=== PATIENT | female | born 1945 | race Caucasian/White ===

== ENCOUNTER 2016-12-07 18:47 | Observation (INO) | payer MEDICARE, OTHER ==
[~2016-12-07] VITALS: Ht 162.6 cm; Wt 113.4 kg
[2016-12-07 20:11] LABS: HEMOGLOBIN 14.6 gm/dl (12.3-15.3); RED BLOOD COUNT 5.06 M/UL (4.00-5.10); WHITE BLOOD COUNT 10.7 K/UL (4.5-11.0)
[2016-12-07 20:40] LABS: BUN/CREATININE RATIO 13 (0-10)
[2016-12-08] MEDS ORDERED: ADVAIR 250-501 EACH INH (01:54)
[2016-12-08] MEDS ORDERED: XYZAL5 MG PO (01:54)
[2016-12-08] MEDS ORDERED: FUROSEMIDE40 MG PO ×2 (01:55→01:56)
[2016-12-08] MEDS ORDERED: TRADJENTA5 MG PO (01:56)
[2016-12-08] MEDS ORDERED: ANASTROZOLE1 MG PO (01:56)
[2016-12-08] MEDS ORDERED: LISINOPRIL20 MG PO (01:57)
[2016-12-08] MEDS ORDERED: LIPITOR TAB 2020 MG PO (01:57)
[2016-12-08] MEDS ORDERED: FLUOXETINE HCL40 MG PO (01:57)
[2016-12-08] MEDS ORDERED: GLUCOPHAGE500 MG PO (01:58)
[2016-12-08] MEDS ORDERED: PANTOPRAZOLE SO40 MG PO (01:58)
[2016-12-08] MEDS ORDERED: POTASSIUM CHLO10 MEQ PO (01:59)
[2016-12-08 02:50] LABS: HEMOGLOBIN 13.6 gm/dl (12.3-15.3); RED BLOOD COUNT 4.64 M/UL (4.00-5.10); WHITE BLOOD COUNT 8.8 K/UL (4.5-11.0)
[2016-12-08 03:15] LABS: BUN/CREATININE RATIO 15 (0-10)
== END 2016-12-08 18:30 | disposition home or self-care (01) ==
LOC: ER1 18:47 → ZEROF 22:48 → M/S 22:48
PROVIDERS: Family Medicine; ADMIT Hospitalist
DX: R07.9 Chest pain, unspecified (principal); I25.10 Atherosclerotic heart disease of native coronary artery without angina pectoris; I11.0 Hypertensive heart disease with heart failure; I50.9 Heart failure, unspecified; E11.9 Type 2 diabetes mellitus without complications; E78.5 Hyperlipidemia, unspecified; E66.9 Obesity, unspecified; Z68.41 Body mass index [BMI] 40.0-44.9, adult; Z85.3 Personal history of malignant neoplasm of breast; Z87.19 Personal history of other diseases of the digestive system; Z86.718 Personal history of other venous thrombosis and embolism; Z88.8 Allergy status to other drugs, medicaments and biological substances; Z88.0 Allergy status to penicillin; Z79.84 Long term (current) use of oral hypoglycemic drugs; Z79.899 Other long term (current) drug therapy
CPT/HCPCS: ECHO; 36415; 71010; 80053; 80061; 82550; 82553; 82962; 83036; 83874; 83880; 84443; 84484; 85025; 85027; 85379; 93005; 93306; 96372; 96374; 99285; C9113; G0378; J1650

== ENCOUNTER → 2020-06-06 | Outpatient (CLI) | payer MEDICARE, OTHER ==
[~2020-06-06] MED LIST: ADVAIR 250-501 EACH INH; ALBUTEROL2.5 MG/3 M INH; ANASTROZOLE1 MG PO; ARIMIDEX1 MG PO; ASPIRIN EC81 MG PO; ATORVASTATIN CA40 MG PO; CINNAMON PO; FIBER CHOICE PO; FISH OIL 1,0001 EACH PO; FLUOXETINE HCL40 MG PO; FUROSEMIDE20 MG PO; FUROSEMIDE40 MG PO; GLUCOPHAGE500 MG PO; K-DUR TAB 10 M10 MEQ PO; LIPITOR TAB 2020 MG PO; LISINOPRIL20 MG PO; MECLIZINE HCL12.5 MG PO; METFORMIN HCL500 MG PO; NORCO 5-325 TA1 EACH PO; PANTOPRAZOLE SO40 MG PO; POTASSIUM CHLO10 MEQ PO; PROAIR HFA8.5 GM INH; TRADJENTA5 MG PO; VIT D PO; XYZAL5 MG PO; ZYRTEC10 MG PO; [UNRECOGNIZED DRUG - OTHER] PO
== END ==
LOC: EXRD 11:27
DX: R07.81 Pleurodynia (principal); R91.8 Other nonspecific abnormal finding of lung field
CPT/HCPCS: 71101

== ENCOUNTER → 2020-06-14 | Outpatient (CLI) | payer MEDICARE, OTHER | LOC: MAMO 05-10 10:00 | DX: Z12.31 Encounter for screening mammogram for malignant neoplasm of breast (principal) | CPT/HCPCS: 77063; 77067 ==

== ENCOUNTER 2020-10-28 00:27 | Emergency (ER) | payer MEDICARE, OTHER ==
[2020-10-28] MEDS ORDERED: CLINDAMYCIN HC150 MG PO (04:32)
== END 2020-10-28 04:41 | disposition home or self-care (01) ==
LOC: ER1 00:27
DX: L03.116 Cellulitis of left lower limb (principal); E78.5 Hyperlipidemia, unspecified; E11.9 Type 2 diabetes mellitus without complications; I11.0 Hypertensive heart disease with heart failure; I50.9 Heart failure, unspecified; Z85.3 Personal history of malignant neoplasm of breast; Z90.49 Acquired absence of other specified parts of digestive tract; Z90.89 Acquired absence of other organs; Z90.710 Acquired absence of both cervix and uterus; Z88.0 Allergy status to penicillin; Z88.2 Allergy status to sulfonamides; Z88.8 Allergy status to other drugs, medicaments and biological substances
CPT/HCPCS: 99283

== ENCOUNTER → 2021-05-27 | Outpatient (CLI) | payer MEDICARE, OTHER ==
[~2021-05-27] MED LIST changes: +CLINDAMYCIN HC150 MG PO
== END ==
LOC: EXRD 10:30
DX: M81.0 Age-related osteoporosis without current pathological fracture (principal); C50.111 Malignant neoplasm of central portion of right female breast; E86.1 Hypovolemia; M85.852 Other specified disorders of bone density and structure, left thigh
CPT/HCPCS: 77080

== ENCOUNTER → 2021-06-18 | Outpatient (CLI) | payer MEDICARE, OTHER | LOC: MAMO 10:00 | DX: Z12.31 Encounter for screening mammogram for malignant neoplasm of breast (principal); C50.111 Malignant neoplasm of central portion of right female breast; T82.898A Other specified complication of vascular prosthetic devices, implants and grafts, initial encounter; E86.1 Hypovolemia; Z98.890 Other specified postprocedural states | CPT/HCPCS: 77063; 77067 ==

== ENCOUNTER → 2021-06-19 | Outpatient (CLI) | payer MEDICARE, OTHER | LOC: HEART 5 11:47 | DX: J45.40 Moderate persistent asthma, uncomplicated (principal) | CPT/HCPCS: 94060; 94729 ==

== ENCOUNTER → 2021-06-19 | Outpatient (CLI) | payer MEDICARE, OTHER | LOC: RT 11:46 | DX: J45.40 Moderate persistent asthma, uncomplicated (principal) | CPT/HCPCS: 36600; 82803 ==

== ENCOUNTER 2021-07-23 23:19 | Inpatient (IN) | payer MEDICARE, OTHER ==
[~2021-07-23] VITALS: Ht 162.6 cm; Wt 111.1 kg
[~2021-07-23 23:19] MED LIST changes: +ASPIRIN EC325 MG PO; -ASPIRIN EC81 MG PO; -K-DUR TAB 10 M10 MEQ PO; +K-TAB ER10 MEQ PO; +LISINOPRIL30 MG PO; +PRENATAL VITAM1 EAC3 PO; -[UNRECOGNIZED DRUG - OTHER] PO
[2021-07-23 23:34] LABS: HEMOGLOBIN 13.7 gm/dl (12.3-15.3); RED BLOOD COUNT 4.66 M/UL (4.00-5.10); WHITE BLOOD COUNT 15.9 K/UL (4.5-11.0)
[2021-07-23 23:54] LABS: BUN/CREATININE RATIO 21 (0-10)
[2021-07-24] MEDS ORDERED: MACROBID 100 M100 MG PO (10:21)
[2021-07-24] MEDS ORDERED: MAG-OX 400 TAB400 MG PO (10:22)
[2021-07-24] MEDS ORDERED: LEVOCETIRIZINE D5 MG PO (10:23)
[2021-07-24] MEDS ORDERED: ISOSORBIDE MONO30 MG PO (10:23)
[2021-07-24] MEDS ORDERED: VITAMIN C500 M4 PO (10:26)
--- NOTE | 2021-07-24 21:42 | NUR ---
Late Entry 07/24/2021 at 2049: Spoke with Jnae in pharmacy related to Acetaminophen allergy listed. Patient stated that she takes Tylenol at home with no adverse side effects.
[2021-07-25 03:07] LABS: HEMOGLOBIN 13.3 gm/dl (12.3-15.3); RED BLOOD COUNT 4.57 M/UL (4.00-5.10)
[2021-07-25 03:12] LABS: WHITE BLOOD COUNT 9.9 K/UL (4.5-11.0)
[2021-07-25 04:30] LABS: BUN/CREATININE RATIO 16 (0-10)
[2021-07-26 03:56] LABS: HEMOGLOBIN 11.6 gm/dl (12.3-15.3)
[2021-07-26 04:10] LABS: RED BLOOD COUNT 3.99 M/UL (4.00-5.10); WHITE BLOOD COUNT 5.7 K/UL (4.5-11.0)
[2021-07-26 04:20] LABS: BUN/CREATININE RATIO 16 (0-10)
[2021-07-27 05:19] LABS: BUN/CREATININE RATIO 12 (0-10)
--- NOTE | 2021-07-28 15:35 | NUR ---
1535- PT REQUESTED NURSE TO CALL DR. STROUD ABOUT CODE STATUS. PT STATES SHE WANTS TO BE FULL CODE. NOTIFIED. DR. SMITH CALLED AND SPOLE TO PT OVER THE FAMILY, ORDERED TO CHANGE CODE STATUS TO FULL CODE.
[2021-07-29 10:08] LABS: HEMOGLOBIN 12.9 gm/dl (12.3-15.3); RED BLOOD COUNT 4.45 M/UL (4.00-5.10); WHITE BLOOD COUNT 8.1 K/UL (4.5-11.0)
[2021-07-30 03:24] LABS: HEMOGLOBIN 12.9 gm/dl (12.3-15.3); RED BLOOD COUNT 4.45 M/UL (4.00-5.10)
[2021-07-30 04:07] LABS: BUN/CREATININE RATIO 15 (0-10)
[2021-08-01] MEDS ORDERED: ASPIRIN EC81 MG PO (11:26)
[2021-08-01] MEDS ORDERED: IPRAT-ALBUT 0.5-3 ML NEB (11:26)
[2021-08-01] MEDS ORDERED: ROBITUSSIN DM UD5 ML PO (11:26)
[2021-08-01] MEDS ORDERED: NEBULIZER UNIT NEB (11:29)
== END 2021-08-01 17:43 | disposition home or self-care (01) | DRG 871 ==
LOC: ER1 23:19 → CDU 07-24 00:37 → M/S 07-24 00:37
PROVIDERS: Internal Medicine; Internal Medicine Interventional Cardiology; Nurse Practitioner; Physician Assistant; ADMIT Internal Medicine
PROC: 3E03329 Introduction of Other Anti-infective into Peripheral Vein, Percutaneous Approach (ICD-10-PCS; 2021-07-24)
PROC: 4A023N7 Measurement of Cardiac Sampling and Pressure, Left Heart, Percutaneous Approach (ICD-10-PCS; principal; 2021-07-30)
PROC: B2111ZZ Fluoroscopy of Multiple Coronary Arteries using Low Osmolar Contrast (ICD-10-PCS; 2021-07-30)
DX: A41.51 Sepsis due to Escherichia coli [E. coli] (principal); J96.21 Acute and chronic respiratory failure with hypoxia; J18.9 Pneumonia, unspecified organism; E87.2 Acidosis; N30.00 Acute cystitis without hematuria; Z68.41 Body mass index [BMI] 40.0-44.9, adult; R65.20 Severe sepsis without septic shock; Z20.822 Contact with and (suspected) exposure to COVID-19; E66.01 Morbid (severe) obesity due to excess calories; B96.20 Unspecified Escherichia coli [E. coli] as the cause of diseases classified elsewhere; E11.9 Type 2 diabetes mellitus without complications; I51.7 Cardiomegaly; I10 Essential (primary) hypertension; E78.5 Hyperlipidemia, unspecified; I25.9 Chronic ischemic heart disease, unspecified; Z85.3 Personal history of malignant neoplasm of breast; Z82.49 Family history of ischemic heart disease and other diseases of the circulatory system; Z88.0 Allergy status to penicillin; Z66 Do not resuscitate; J44.9 Chronic obstructive pulmonary disease, unspecified; Z99.81 Dependence on supplemental oxygen
CPT/HCPCS: 0240U; 36415; 36600; 71045; 80048; 80053; 80202; 81001; 82533; 82550; 82553; 82803; 82962; 83036; 83605; 83735; 83880; 84439; 84443; 84484; 85025; 85027; 85652; 87040; 87077; 87086; 87186; 93005; 93571; 94640; 94760; 96374; 96375; 96376; 97161; 97165; 99152; 99153; 99285; C1769; C1887; J0153; J0461; J1644; J1650; J1956; J2250; J3010; J3370; J7040; J7070; Q9967

== ENCOUNTER 2021-09-03 14:11 | Emergency (ER) | payer MEDICARE, OTHER ==
[~2021-09-03 14:11] MED LIST changes: +ASPIRIN EC81 MG PO; +IPRAT-ALBUT 0.5-3 ML NEB; +ISOSORBIDE MONO30 MG PO; +LEVOCETIRIZINE D5 MG PO; +MACROBID 100 M100 MG PO; +MAG-OX 400 TAB400 MG PO; +NEBULIZER UNIT NEB; +ROBITUSSIN DM UD5 ML PO; +VITAMIN C500 M4 PO
[2021-09-03] MEDS ORDERED: MIRALAX 119 GR119 GM GT (19:10)
[2021-09-03] MEDS ORDERED: COMMODE (19:10)
[2021-09-03] MEDS ORDERED: Walker (19:10)
[2021-09-03] MEDS ORDERED: HYDROCODON-ACE1 EAC2 PO (19:10)
== END 2021-09-03 23:30 | disposition home or self-care (01) ==
LOC: ER1 14:11
DX: M54.6 Pain in thoracic spine (principal); J45.909 Unspecified asthma, uncomplicated; E78.5 Hyperlipidemia, unspecified; E11.9 Type 2 diabetes mellitus without complications; Z85.3 Personal history of malignant neoplasm of breast; Z90.710 Acquired absence of both cervix and uterus
CPT/HCPCS: 72128; 72131; 96372; 99283; J1885; J2270

== ENCOUNTER 2021-09-04 16:59 | Emergency (ER) | payer MEDICARE, OTHER ==
[~2021-09-04 16:59] MED LIST changes: +COMMODE; +HYDROCODON-ACE1 EAC2 PO; +MIRALAX 119 GR119 GM GT; +Walker
[2021-09-04 18:55] LABS: HEMOGLOBIN 17.9 gm/dl (12.3-15.3); RED BLOOD COUNT 6.05 M/UL (4.00-5.10)
[2021-09-04 19:04] LABS: WHITE BLOOD COUNT 34.9 K/UL (4.5-11.0)
== END 2021-09-05 00:10 | disposition short-term general hospital (02) ==
LOC: ER1 16:59
PROVIDERS: Emergency Medicine
DX: A41.9 Sepsis, unspecified organism (principal); R65.21 Severe sepsis with septic shock; S22.089A Unspecified fracture of T11-T12 vertebra, initial encounter for closed fracture; J96.21 Acute and chronic respiratory failure with hypoxia; N39.0 Urinary tract infection, site not specified; N17.9 Acute kidney failure, unspecified; J44.9 Chronic obstructive pulmonary disease, unspecified; E66.01 Morbid (severe) obesity due to excess calories; Z20.822 Contact with and (suspected) exposure to COVID-19; X50.9XXA Other and unspecified overexertion or strenuous movements or postures, initial encounter
CPT/HCPCS: 0240U; 36600; 51701; 70450; 71045; 71250; 72125; 80053; 80307; 81001; 82550; 82553; 82803; 83605; 83735; 84100; 84484; 85025; 87040; 87086; 93005; 96365; 96366; 99285; J1885; J2185; J2310; J3370; J7070

== ENCOUNTER → 2021-10-19 | Outpatient (CLI) | payer MEDICARE, OTHER | LOC: MRI 09:25 | DX: S22.080A Wedge compression fracture of T11-T12 vertebra, initial encounter for closed fracture (principal); M48.04 Spinal stenosis, thoracic region; G95.9 Disease of spinal cord, unspecified | CPT/HCPCS: 72146 ==

== ENCOUNTER 2021-10-23 14:14 | Emergency (ER) | payer MEDICARE, OTHER ==
[2021-10-23 15:08] LABS: HEMOGLOBIN 11.8 gm/dl (12.3-15.3); RED BLOOD COUNT 4.3 M/UL (4.00-5.10); WHITE BLOOD COUNT 8.6 K/UL (4.5-11.0)
[2021-10-23 15:34] LABS: BUN/CREATININE RATIO 13 (0-10)
[2021-10-23] MEDS ORDERED: METRONIDAZOLE500 MG PO (19:53)
[2021-10-23] MEDS ORDERED: LEVOFLOXACIN750 MG PO (19:53)
[2021-10-23] MEDS ORDERED: MAGNESIUM OXID400 M1 PO (19:56)
== END 2021-10-23 20:35 | disposition home or self-care (01) ==
LOC: ER1 14:14
PROVIDERS: Family Medicine
DX: R10.30 Lower abdominal pain, unspecified (principal); E83.42 Hypomagnesemia; E78.5 Hyperlipidemia, unspecified; I10 Essential (primary) hypertension; Z88.0 Allergy status to penicillin
CPT/HCPCS: 80053; 81001; 82272; 82550; 82553; 83690; 83735; 84484; 85025; 86850; 86900; 86901; 87086; 93005; 99284; J2704; J2930; Q9967

== ENCOUNTER 2021-12-14 19:33 | Inpatient (IN) | payer MEDICARE, OTHER ==
[~2021-12-14] VITALS: Ht 162.6 cm; Wt 113.9 kg
[~2021-12-14 19:33] MED LIST changes: +LEVOFLOXACIN750 MG PO; +MAGNESIUM OXID400 M1 PO; +METRONIDAZOLE500 MG PO; +PROTONIX20 MG PO
[2021-12-14 20:28] LABS: HEMOGLOBIN 13.3 gm/dl (12.3-15.3); RED BLOOD COUNT 4.8 M/UL (4.00-5.10); WHITE BLOOD COUNT 19.5 K/UL (4.5-11.0)
[2021-12-15 07:32] LABS: HEMOGLOBIN 11.4 gm/dl (12.3-15.3); WHITE BLOOD COUNT 15.6 K/UL (4.5-11.0)
[2021-12-15 07:34] LABS: RED BLOOD COUNT 4.18 M/UL (4.00-5.10)
--- NOTE | 2021-12-15 09:09 | NUR ---
0810- NOTIFED MD OF CRITICAL LACTIC 21.2. NO NEW ORDERS
--- NOTE | 2021-12-15 10:52 | NUR ---
1052- NOTIFED DR GOLDSMITH OF RADIOLOGY STATING PT HAS A RIGHT DVT IN THE FEMORAL POPLITEAL SYSTEM. NO NEW ORDERS
[2021-12-15] MEDS ORDERED: METOPROLOL TART25 MG PO (12:38)
[2021-12-15] MEDS ORDERED: LEVOCETIRIZINE D5 MG PO (12:39)
[2021-12-15] MEDS ORDERED: MONTELUKAST SOD10 MG PO (12:39)
[2021-12-15] MEDS ORDERED: ZOFRAN ODT 4 MG4 MG PO (12:39)
[2021-12-15] MEDS ORDERED: LISINOPRIL30 MG PO (12:40)
[2021-12-15] MEDS ORDERED: VITAMIN D3125 MCG PO (12:41)
[2021-12-15] MEDS ORDERED: MAGNESIUM400 M2 PO (12:43)
[2021-12-15 19:33] LABS: BUN/CREATININE RATIO 25 (0-10)
[2021-12-16 01:40] LABS: RED BLOOD COUNT 4.02 M/UL (4.00-5.10); WHITE BLOOD COUNT 15.3 K/UL (4.5-11.0)
[2021-12-16 01:58] LABS: BUN/CREATININE RATIO 29 (0-10)
--- NOTE | 2021-12-16 03:41 | NUR ---
CONTACTED DR. DANIELE LAMBERT DUE TO CRITICAL LAB OF LACTIC ACID 23.2, SHE ORDERED A REPEAT BNP AND LACTIC ACID AT 0600 AND A [address] NS [address]. [address] LAMBERT WAS MADE AWARE OF CHF IN PATIENTS MD JEFFERS. WILL MONITOR PATIENT. NO DISTRESS NOTED AT THIS TIME.
[2021-12-17 03:24] LABS: HEMOGLOBIN 10.3 gm/dl (12.3-15.3); RED BLOOD COUNT 3.81 M/UL (4.00-5.10)
[2021-12-17 03:28] LABS: WHITE BLOOD COUNT 8.7 K/UL (4.5-11.0)
--- NOTE | 2021-12-17 11:19 | NUR ---
PTS CHART REVIEWED BY BELLE MCCLELLAN RN
[2021-12-17 15:48] LABS: BUN/CREATININE RATIO 49 (0-10)
[2021-12-18 07:40] LABS: HEMOGLOBIN 10.7 gm/dl (12.3-15.3); RED BLOOD COUNT 3.98 M/UL (4.00-5.10)
[2021-12-18 08:08] LABS: BUN/CREATININE RATIO 42 (0-10)
[2021-12-19 03:00] LABS: HEMOGLOBIN 10.4 gm/dl (12.3-15.3); RED BLOOD COUNT 3.82 M/UL (4.00-5.10)
[2021-12-19 03:01] LABS: WHITE BLOOD COUNT 10.3 K/UL (4.5-11.0)
[2021-12-19 04:02] LABS: BUN/CREATININE RATIO 46 (0-10)
[2021-12-20 21:18] LABS: HEMOGLOBIN 10.4 gm/dl (12.3-15.3); RED BLOOD COUNT 3.81 M/UL (4.00-5.10)
[2021-12-21 06:21] LABS: HEMOGLOBIN 11.4 gm/dl (12.3-15.3); RED BLOOD COUNT 4.13 M/UL (4.00-5.10); WHITE BLOOD COUNT 12.3 K/UL (4.5-11.0)
[2021-12-21 08:40] LABS: BUN/CREATININE RATIO 38 (0-10)
[2021-12-22 06:39] LABS: HEMOGLOBIN 11.7 gm/dl (12.3-15.3); RED BLOOD COUNT 4.32 M/UL (4.00-5.10)
[2021-12-22 07:07] LABS: WHITE BLOOD COUNT 8.9 K/UL (4.5-11.0)
[2021-12-22 07:56] LABS: BUN/CREATININE RATIO 28 (0-10)
[2021-12-23 05:18] LABS: HEMOGLOBIN 10.9 gm/dl (12.3-15.3); RED BLOOD COUNT 3.96 M/UL (4.00-5.10)
[2021-12-23 05:35] LABS: BUN/CREATININE RATIO 26 (0-10)
[2021-12-24 03:36] LABS: HEMOGLOBIN 10.7 gm/dl (12.3-15.3); RED BLOOD COUNT 3.93 M/UL (4.00-5.10); WHITE BLOOD COUNT 8.8 K/UL (4.5-11.0)
[2021-12-24 07:46] LABS: BUN/CREATININE RATIO 22 (0-10)
[2021-12-24] MEDS ORDERED: ELIQUIS (11:19)
[2021-12-24] MEDS ORDERED: INVANZ 1 GM (11:19)
[2021-12-24] MEDS ORDERED: HYDROCODON-ACE1 EAC2 PO (11:28)
--- NOTE | 2021-12-24 14:19 | NUR ---
REPORT CALLED TO RICARDO AT [facility]
[2021-12-25 03:44] LABS: HEMOGLOBIN 11.1 gm/dl (12.3-15.3); RED BLOOD COUNT 4.09 M/UL (4.00-5.10); WHITE BLOOD COUNT 10.1 K/UL (4.5-11.0)
[2021-12-25 03:59] LABS: BUN/CREATININE RATIO 20 (0-10)
[2021-12-25] MEDS ORDERED: REGLAN5 MG PO (12:59)
== END 2021-12-25 19:55 | disposition home health service (06) | DRG 871 ==
LOC: ER1 19:33 → M/S 12-15 02:38 → CDU 12-15 02:38 → M/S 12-15 05:33
PROVIDERS: Emergency Medicine; Internal Medicine; Internal Medicine Nephrology; ADMIT Family Medicine
PROC: 3E03329 Introduction of Other Anti-infective into Peripheral Vein, Percutaneous Approach (ICD-10-PCS; principal; 2021-12-16)
PROC: B24BZZZ Ultrasonography of Heart with Aorta (ICD-10-PCS; 2021-12-16)
PROC: 4A03XR1 Measurement of Arterial Saturation, Peripheral, External Approach (ICD-10-PCS; 2021-12-16)
PROC: 02HV33Z Insertion of Infusion Device into Superior Vena Cava, Percutaneous Approach (ICD-10-PCS; 2021-12-18)
DX: A41.51 Sepsis due to Escherichia coli [E. coli] (principal); G93.41 Metabolic encephalopathy; L89.154 Pressure ulcer of sacral region, stage 4; J18.9 Pneumonia, unspecified organism; N30.00 Acute cystitis without hematuria; E87.1 Hypo-osmolality and hyponatremia; N17.9 Acute kidney failure, unspecified; J44.0 Chronic obstructive pulmonary disease with (acute) lower respiratory infection; I13.0 Hypertensive heart and chronic kidney disease with heart failure and stage 1 through stage 4 chronic kidney disease, or unspecified chronic kidney disease; I82.412 Acute embolism and thrombosis of left femoral vein; I82.432 Acute embolism and thrombosis of left popliteal vein; J96.11 Chronic respiratory failure with hypoxia; Z68.42 Body mass index [BMI] 45.0-49.9, adult; E78.5 Hyperlipidemia, unspecified; E66.01 Morbid (severe) obesity due to excess calories; K21.9 Gastro-esophageal reflux disease without esophagitis; K57.90 Diverticulosis of intestine, part unspecified, without perforation or abscess without bleeding; R53.83 Other fatigue; K21.00 Gastro-esophageal reflux disease with esophagitis, without bleeding; I25.10 Atherosclerotic heart disease of native coronary artery without angina pectoris; I50.9 Heart failure, unspecified; E86.9 Volume depletion, unspecified; R62.7 Adult failure to thrive; G47.33 Obstructive sleep apnea (adult) (pediatric); R65.20 Severe sepsis without septic shock; M54.50 Low back pain, unspecified; K59.00 Constipation, unspecified; S22.089D Unspecified fracture of T11-T12 vertebra, subsequent encounter for fracture with routine healing; G89.29 Other chronic pain; E11.22 Type 2 diabetes mellitus with diabetic chronic kidney disease; N18.30 Chronic kidney disease, stage 3 unspecified; L89.892 Pressure ulcer of other site, stage 2; Z74.01 Bed confinement status; Z90.49 Acquired absence of other specified parts of digestive tract; Z85.3 Personal history of malignant neoplasm of breast; Z80.1 Family history of malignant neoplasm of trachea, bronchus and lung; Z88.0 Allergy status to penicillin; Z88.8 Allergy status to other drugs, medicaments and biological substances; Z90.710 Acquired absence of both cervix and uterus; Z98.890 Other specified postprocedural states; Z88.2 Allergy status to sulfonamides; Z79.01 Long term (current) use of anticoagulants; Z92.21 Personal history of antineoplastic chemotherapy; Z90.11 Acquired absence of right breast and nipple; Z79.899 Other long term (current) drug therapy; Z79.82 Long term (current) use of aspirin
CPT/HCPCS: ECHO; 36415; 70450; 71045; 72070; 72100; 72128; 72131; 72192; 73502; 73552; 73562; 73590; 73600; 73620; 73700; 80048; 80053; 81001; 82272; 82436; 82533; 82550; 82553; 82728; 82962; 83036; 83540; 83550; 83605; 83735; 83880; 83935; 84100; 84133; 84295; 84300; 84439; 84443; 84484; 85025; 85027; 85610; 85652; 85730; 86140; 87040; 87077; 87086; 87186; 92610; 93005; 93306; 93880; 93971; 94640; 94664; 94760; 94762; 96361; 96374; 96375; 96376; 97110; 97110-GP-CQ; 97162; 97166; 97530-GP-CQ; 99285; C1751; G0378; J0692; J0696; J1335; J1644; J1650; J1940; J2020; J2270; J2405; J7050; Q9967